=== PATIENT | female | born 1965 | race Two or more races ===

== ENCOUNTER 2018-07-25 19:33 | Emergency (ER) | payer BC ==
[2018-07-25] MEDS ORDERED: Sodium Chloride 0.9% 1,000 ML IV ONE (20:28)
--- NOTE | 2018-07-25 20:42 | C.PDOC ---
History Of Present Illness 52 year old female with no past-medical history presents to the emergency department with complaints of sore throat, cough, body aches, generalized weakness and chills for the last 3 days. Patient reports that she was seen by Dr. Jasiel Doshi yesterday who prescribed her Z-Pack and Promethazine. Patient reports that she has taken the medication but reports feeling weaker with worsening body aches. Patient denies trauma, falls, rashes, taking any Statins, neck stiffness, abdominal pain, shortness of breath, and urinary complaints. No constipation or diarrhea, no dark or bloody stool. No change in phonation. Patient reports that she is able to eat and drink normally. Time Seen by Provider: 07/25/18 20:00 Chief Complaint (Nursing): Flu-like Symptoms History Per: Patient History/Exam Limitations: no limitations Onset/Duration Of Symptoms: Days (3) Current Symptoms Are (Timing): Still Present Location Of Pain: Throat, Diffuse Myalgias Associated Symptoms: Chills, Sore Throat, Cough, Myalgias, Nasal Congestion Past Medical History Reviewed: Historical Data, Nursing Documentation, Vital Signs Vital Signs: Last Vital Signs Temp 100.2 F H 07/25/18 19:45 Pulse 91 H 07/25/18 19:45 Resp 16 07/25/18 19:45 BP 112/77 07/25/18 19:45 Pulse Ox 97 07/25/18 19:45 - Medical History PMH: No Chronic Diseases Surgical History: Cholecystectomy (09-16-13) - [facility] Procedures ESOPHAGOGASTRODUODENOSCOPY [EGD] W/CLOSED BIOPSY (11/07/13) Family History: States: No Known Family Hx - Social History Hx Tobacco Use: No Hx Alcohol Use: No Hx Substance Use: No - Immunization History Hx Tetanus Toxoid Vaccination: No Hx Influenza Vaccination: No Hx Pneumococcal Vaccination: No Review Of Systems Constitutional: Positive for: Chills, Weakness. Negative for: Fever Eyes: Negative for: Pain, Vision Change ENT: Positive for: Throat Pain. Negative for: Ear Pain, Ear Discharge, Nose Pain, Nose Discharge, Nose Congestion, Mouth Pain, Mouth Swelling, Throat Swelling Cardiovascular: Negative for: Chest Pain, Palpitations, Orthopnea Respiratory: Positive for: Cough. Negative for: Shortness of Breath, Pleuritic Pain Gastrointestinal: Negative for: Nausea, Vomiting, Abdominal Pain, Diarrhea, Constipation, Melena, Hematochezia Genitourinary: Negative for: Dysuria, Frequency, Incontinence, Hematuria, Vaginal Discharge, Vaginal Bleeding Musculoskeletal: Positive for: Other (body aches). Negative for: Neck Pain, Shoulder Pain, Arm Pain Skin: Negative for: Rash, Lesions Neurological: Positive for: Weakness (diffuse). Negative for: Numbness, Incoordination, Confusion, Seizures, Altered Mental Status, Headache, Dizziness Psych: Negative for: Anxiety, Depression Physical Exam - Physical Exam Appears: Well, Non-toxic, No Acute Distress Skin: Normal Color, Warm, Dry Head: Atraumatic, Normacephalic Eye(s): bilateral: Normal Inspection, PERRL, EOMI Ear(s): Bilateral: Normal Nose: Normal, No Flaring, No Discharge Oral Mucosa: Moist Tongue: Normal Appearing, No Swelling, No Lesions Lips: Normal Appearing, No Swelling, No Contusion Gingiva: Normal Appearing, No Erythema, No Ulceration Throat: Normal, No Erythema, No Exudate Neck: Normal, Normal ROM, Supple, Other (no meningeal signs) Chest: Symmetrical, No Tenderness Cardiovascular: Rhythm Regular, No Murmur Respiratory: Normal Breath Sounds, No Rales, No Rhonchi, No Wheezing Gastrointestinal/Abdominal: Normal Exam, Soft, No Tenderness, No Guarding, No Rebound Back: Normal Inspection, No CVA Tenderness Extremity: Normal ROM, No Tenderness Extremity: Bilateral: Atraumatic Neurological/Psych: Oriented x3, Normal Speech, Normal Cognition, No Cerebellar Signs, Normal Motor, Normal Sensation Gait: Steady ED Course And Treatment - Laboratory Results Result Diagrams: 07/25/18 20:43 07/25/18 20:43 O2 Sat by Pulse Oximetry: 97 (RA) Pulse Ox Interpretation: Normal Medical Decision Making Medical Decision Makin yr old F w/ recent treatment of bronchitis w/ promethazine and z pack p/w diffuse weakness, sore throat, body aches, nasal congestion. On exam nasal exam w/ mild rhinorrhea. TM unremarkable, mastoid unremarkable. No weakness noted on exam, 5/5 strength and no FND. No meningeal signs. No orophyrangeal abnl. No difficulty swallowing / hot potato voice or change in phonation. Plan: VBG Chemistry CBC CXR Motrin 400mg PO Blood Culture POC Urine Pregnacy Influenza A B Serology Urinalysis Impression: Flu vs. Viral URI vs. Pneumonia 2217 per my read CXR: No acute disease or infiltrates. Labs largely unremarkable outside of mildly increased CK and +FLU A no meningeal signs pt notes symptompatic improvement. Walking in NAD Clear for d/c home with return indications and f/u. Pt and agreeable to plan. Disposition - Disposition Referrals: Jasiel Doshi MD [Medical Doctor] - [facility] [Outside] [facility] [Outside] [facility] [Outside] Disposition: HOME/ ROUTINE Disposition Time: 22:17 Condition: GOOD Additional Instructions: MURTAZA RAMOS, thank you for letting us take care of you today. Your provider was iMna Godfrey and you were treated for WEAKNESS/COLD. The emergency medical care you received today was directed at your acute symptoms. If you were prescribed any medication, please fill it and take as directed. It may take several days for your symptoms to resolve. Return to the Emergency Department if your symptoms worsen, do not improve, or if you have any other problems. Please contact your doctor or call one of the physicians/clinics you have been referred to that are listed on the Patient Visit Information form that is included in your discharge packet. Bring any paperwork you were given at discharge with you along with any medications you are taking to your follow up visit. Our treatment cannot replace ongoing medical care by a primary care provider outside of the emergency department. Thank you for allowing the [facility] team to be part of your care today. If you had an X-Ray or CT scan: A Radiologist will review the ED reading if any change in treatment is needed we will contact you. If you had a blood, urine, or wound culture: It will take several days for the results, if any change in treatment is needed we will contact you. If you had an STI test: It will take 48 hours for the results. Please call after 1 week if you have not heard back. Prescriptions: Oseltamivir Cap [Tamiflu] 75 mg PO BID 5 Days #10 cap Instructions: Flu, Adult (DC) Forms: [facility] (Korean) - Clinical Impression Clinical Impression: Influenza - Scribe Statement The provider has reviewed the documentation as recorded by the Scribe (Norberto Coon) Provider Attestation: All medical record entries made by the Scribe were at my direction and personally dictated by me. I have reviewed the chart and agree that the record accurately reflects my personal performance of the history, physical exam, medical decision making, and the department course for this patient. I have also personally directed, reviewed, and agree with the discharge instructions and disposition.
[2018-07-25 20:48] LABS: VENOUS BLOOD GAS BASE EXCESS 0.8 mmol/L (0.0-2.0); VENOUS BLOOD GAS PCO2 34 mmHg (40-60); VENOUS BLOOD GAS PO2 26 mm/Hg (30-55); VENOUS BLOOD PH 7.46 (7.32-7.43)
[2018-07-25 20:52] LABS: BASO % 0.8 % (0.0-2.0); EOS % 0.2 % (0.0-4.0); HEMOGLOBIN 12.6 g/dL (11.0-16.0); LYMPH # 0.8 K/uL (1.0-4.3); LYMPH % 16.7 % (20.0-40.0); MEAN CELL VOLUME 87.3 fL (81.0-99.0); MEAN CORPUSCULAR HEMOGLOBIN 28.6 pg (27.0-31.0); MEAN CORPUSCULAR HGB CONC 32.8 g/dL (33.0-37.0); MEAN PLATELET VOLUME 8.4 fL (7.2-11.7); MONO # 0.7 K/uL (0.0-0.8); MONO % 14.9 % (0.0-10.0); NEUT # 3.1 K/uL (1.8-7.0); NEUT % 67.4 % (50.0-75.0); NRBC % 0.1 % (0.0-2.0); RBC 4.41 Mil/uL (3.80-5.20); RED CELL DISTRIBUTION WIDTH 13.9 % (11.5-14.5); WHITE BLOOD COUNT 4.6 K/uL (4.8-10.8)
[2018-07-25 21:05] LABS: BLOOD UREA NITROGEN 8 mg/dL (7-17); GFR NON-AFRICAN AMERICAN > 60; LIPASE 235 U/L (23-300)
[2018-07-25 21:06] LABS: ALB/GLOB RATIO 1.3 (1.0-2.1); ALBUMIN 4.7 g/dL (3.5-5.0); ALT/SGPT 13 U/L (9-52); AST/SGOT 63 U/L (14-36)
[2018-07-25 22:37] LABS: URINE BACTERIA RARE (<OCC); URINE BILIRUBIN NEGATIVE (NEGATIVE); URINE BLOOD 1+ (NEGATIVE); URINE CLARITY Clear (Clear); URINE COLOR Straw (YELLOW); URINE GLUCOSE (UA) NORMAL (Normal); URINE LEUKOCYTE ESTERASE NEG Leu/uL (Negative); URINE PROTEIN NEGATIVE (NEGATIVE); URINE UROBILINOGEN NORMAL mg/dL (0.2-1.0)
[2018-07-25 23:07] VITALS: BP 118/70; PULSE 82; RESP 20; TEMP 98.8
[2018-07-26 03:16] VITALS: O2SAT 97
--- NOTE | 2018-07-26 11:37 | RAD ---
Date of service: 07/25/2018 HISTORY: Cough COMPARISON: Comparison chest dated 11/08/2013 TECHNIQUE: Chest PA and lateral FINDINGS: LUNGS: Increased and coarsened interstitial markings possibly secondary to reactive-inflammatory airway disease or viral illness. PLEURA: No significant pleural effusion identified. No pneumothorax apparent. CARDIOVASCULAR: No aortic atherosclerotic calcification present. Normal cardiac size. No pulmonary vascular congestion. OSSEOUS STRUCTURES: No significant abnormalities. VISUALIZED UPPER ABDOMEN: Normal. OTHER FINDINGS: None. IMPRESSION: Increased and coarsened interstitial markings possibly secondary to reactive-inflammatory airway disease or viral illness.
== END 2018-07-25 23:07 | disposition home or self-care (01) ==
LOC: C.ER 19:33
DX: J11.1 Influenza due to unidentified influenza virus with other respiratory manifestations (principal)
CPT/HCPCS: 71046; 80053; 81001; 82550; 82803; 83690; 85025; 87040; 87070; 87430; 87804; 96374; 99284; J2405; J7030